=== PATIENT | female | born 1950 | race Caucasian/White ===

== ENCOUNTER 2018-01-16 14:12 | Emergency (ER) | payer OTHER ==
[~2018-01-16] VITALS: Ht 162.6 cm; Wt 80.8 kg
[2018-01-16 14:18] VITALS: BP 143/89
== END 2018-01-16 15:37 | disposition home or self-care (01) ==
LOC: ED 15:31
DX: M54.2 Cervicalgia (principal); L72.3 Sebaceous cyst
CPT/HCPCS: 93005; 99283